=== PATIENT | female | born 1980 | race Caucasian/White ===

== ENCOUNTER 2020-09-23 20:49 | Emergency (ER) | payer SELFPAY ==
[2020-09-23 22:38] LABS: EOS # 0.2 (0.04-0.40); EOS % 1.5 % (1.0-5.0); HEMOGLOBIN 13.3 g/dL (12.5-16.0); LYMPH# 2.6 (1.50-4.00); MEAN CELL VOLUME 85 fl (78-100); MEAN CORPUSCULAR HEMOGLOBIN 28 pg (27-31); MEAN CORPUSCULAR HGB CONC 32 g/dL (33-37); MONO # 0.8 (0.20-0.80); PLATELET COUNT 315 K/mm3 (130-400); RED BLOOD COUNT 4.84 M/mm3 (4.10-5.30); RED CELL DISTRIBUTION WIDTH 14.9 % (11.5-14.5); WHITE BLOOD COUNT 14.9 K/mm3 (4.8-10.8)
[2020-09-23 22:45] LABS: NEU # 11.2 (1.40-6.50)
[2020-09-23 22:47] LABS: ALBUMIN 4.5 g/dL (3.5-5.0); POTASSIUM 3.9 mmol/L (3.5-5.1)
[2020-09-23 22:49] LABS: CALCIUM 9.3 mg/dL (8.3-10.5)
[2020-09-23 22:50] LABS: TOTAL PROTEIN 8.3 g/dL (6.4-8.3)
[2020-09-23 22:54] LABS: TOTAL BILIRUBIN 0.2 mg/dL (0.2-1.2)
[2020-09-23 23:11] LABS: URINE APPEARANCE HAZY; URINE COLOR YELLOW
[2020-09-23 23:12] LABS: URINE BILIRUBIN NEGATIVE (NEGATIVE); URINE BLOOD TRACE (NEGATIVE); URINE GLUCOSE NEGATIVE (NEGATIVE); URINE KETONE NEGATIVE (NEGATIVE); URINE LEUKOCYTE ESTERASE 1+ (NEGATIVE); URINE NITRATE NEGATIVE (NEGATIVE); URINE PROTEIN(semi-quant) TRACE mg/dL (NEGATIVE); URINE UROBILINOGEN NORMAL (NORMAL)
[2020-09-23 23:13] LABS: URINE MUCUS PRESENT (NOT PRESENT)
[2020-09-24] MEDS ORDERED: ZOFRAN ODT4 MG PO (00:26)
[2020-09-24] MEDS ORDERED: LEADER OMEPRAZO20 MG PO (00:26)
[2020-09-24 00:36] VITALS: BP 126/78
== END 2020-09-24 00:36 | disposition home or self-care (01) ==
LOC: ED 20:49
PROVIDERS: Family Medicine
DX: K82.4 Cholesterolosis of gallbladder (principal)
CPT/HCPCS: C9113; J3490; Q9967